=== PATIENT | male | born 1960 | race Caucasian/White ===

== ENCOUNTER 2022-02-05 21:47 | Emergency (ER) | payer SELFPAY ==
[~2022-02-05] VITALS: Ht 167.6 cm; Wt 74.8 kg
[2022-02-05 22:12] LABS: BASOPHILS % 0.3 % (0.0-1.0); EOSINOPHILS # (AUTO) 0.1 (0.0-0.4); EOSINOPHILS % 0.9 % (0.0-6.0); HEMATOCRIT 48.1 % (38.2-49.6); HEMOGLOBIN 15.8 g/dL (14.0-18.0); LYMPHOCYTES # (AUTO) 1.8 (1.0-3.2); LYMPHOCYTES % 27.6 % (18.0-39.1); MEAN CORPUSCULAR HEMOGLOBIN 32.9 pg (28-32); MEAN CORPUSCULAR HGB CONC 32.8 g/dL (31-35); MEAN CORPUSCULAR VOLUME 100.2 fL (81-99); MONOCYTES # (AUTO) 0.9 (0.2-0.8); NEUTROPHILS # (AUTO) 3.7 (2.1-6.9); PLATELET COUNT 149 x10e3/uL (140-360); RED CELL DISTRIBUTION WIDTH 12.1 % (11.7-14.4)
[2022-02-05 22:30] LABS: ALANINE AMINOTRANSFERASE 17 IU/L (0-55); ALBUMIN 3.5 g/dL (3.5-5.0); ALBUMIN/GLOBULIN RATIO 1.3 (0.8-2.0); ALKALINE PHOSPHATASE 53 IU/L (40-150); ANION GAP 16.4 mmol/L (8-16); BLOOD UREA NITROGEN 15 mg/dL (7-26); BUN/CREATININE RATIO 13 (6-25); CALCIUM 8.9 mg/dL (8.4-10.2); CARBON DIOXIDE 23 mmol/L (22-29); CHLORIDE 101 mmol/L (98-107); CREATINE KINASE 320 IU/L (30-200); CREATININE, SERUM 1.14 mg/dL (0.72-1.25); GLUCOSE 115 mg/dL (74-118); POTASSIUM 3.4 mmol/L (3.5-5.1); SODIUM 137 mmol/L (136-145)
[2022-02-05] MEDS ORDERED: PROVENTIL HFA6.7 GM INH (22:34)
[2022-02-05] MEDS ORDERED: AZITHROMYCIN250 MG PO (22:34)
[2022-02-05] MEDS ORDERED: MEDROL4 M2 PO (22:34)
[2022-02-05] MEDS ORDERED: TAMIFLU75 MG PO (22:43)
[2022-02-05 23:55] VITALS: BP 134/81
== END 2022-02-05 23:38 | disposition home or self-care (01) ==
LOC: ER 22:30
DX: J10.1 Influenza due to other identified influenza virus with other respiratory manifestations (principal); J45.909 Unspecified asthma, uncomplicated; Z20.822 Contact with and (suspected) exposure to COVID-19; R94.31 Abnormal electrocardiogram [ECG] [EKG]; F17.200 Nicotine dependence, unspecified, uncomplicated
CPT/HCPCS: 36415; 71045; 80053; 82550; 82553; 84484; 85025; 87400; 93005; 99284; U0002